=== PATIENT | male | born 2000 | race Two or more races ===

== ENCOUNTER 2022-09-07 18:11 | Emergency (ER) | payer SELFPAY ==
[~2022-09-07] VITALS: Ht 180.3 cm; Wt 63.0 kg
--- NOTE | 2022-09-07 18:21 | NUR ---
URINE COLLECTED AND SENT
--- NOTE | 2022-09-07 18:29 | NUR ---
TECH AT BEDSIDE FOR EKG
--- NOTE | 2022-09-07 18:41 | NUR ---
IV LINE ON RFA #18 INNER TUBE CUTTER
--- NOTE | 2022-09-07 18:53 | NUR ---
PT TAKEN TO RADIOLOGY FOR CT
[2022-09-07] MEDS ORDERED: IV NS 0.9% 1,000 ML BAG IV ONE (19:00)
[2022-09-07 19:12] LABS: CALCIUM, SERUM 8.4 mg/dL (8.5-10.1); CARBON DIOXIDE 25 mmol/L (21-32); CHLORIDE 103 mmol/L (98-107); CREATININE 0.9 mg/dL (0.6-1.3); GLUCOSE 110 mg/dL (74-106); SODIUM SERUM 143 mmol/L (136-145); UREA NITROGEN, BLOOD 9 mg/dL (7-18)
--- NOTE | 2022-09-07 19:55 | NUR ---
RECEIVED PATIENT IN BED. ALTERED. AAOX1. PATIENT WITHDRAWS TO PAIN. PATIENT IS ATTACHED TO MONITOR. VITALS CHECKED. HAS PERIPHEREAL LINE ON LEFT FA G18. RUNNING IS NS 1L.
[2022-09-07 20:22] LABS: BASOPHILS % (AUTO) 0.2 % (0.0-2.0); EOSINOPHILS % (AUTO) 0.2 % (0.0-6.0); HEMATOCRIT 43 % (39-51); HEMOGLOBIN 14.4 g/dL (13.5-17.5); LYMPHOCYTES # (AUTO) 1.6 K/uL (0.8-4.8); LYMPHOCYTES % (AUTO) 17.9 % (20.0-44.0); MEAN CORPUSCULAR HGB CONC 34 g/dl (31.0-36.0); MEAN CORPUSCULAR VOLUME 86 fL (80-96); MONOCYTES # (AUTO) 0.3 K/uL (0.1-1.30); MONOCYTES % (AUTO) 3.8 % (2.0-12.0); NEUTROPHILS # (AUTO) 6.9 K/uL (1.8-8.9); NEUTROPHILS % (AUTO) 77.9 % (43.0-81.0); PLATELET COUNT (AUTO) 289 K/uL (150-450); RED BLOOD CELL COUNT(AUTO) 4.95 MIL/uL (4.5-6.0); WHITE BLOOD COUNT (AUTO) 8.9 K/uL (4.3-11.0)
--- NOTE | 2022-09-07 20:50 | NUR ---
Sid short in ED - 09/07/22 at 2051 by JENNY Patient discharged to home in stable condition. Written and verbal after care instructions given. Patient verbalizes understanding of instruction.
--- NOTE | 2022-09-07 20:50 | NUR ---
Sid short in [facility] - 09/07/22 at 2121 by JENNY IV CANNULA REMOVED
[2022-09-07] MEDS ORDERED: POTASSIUM CL. PREMIX PERIPHER. 50 ML ONE ×3 (21:08→23:34)
--- NOTE | 2022-09-07 21:21 | NUR ---
KCL INFUSION STARTED. RUNNING 1ST BAG OF KCL 10meq/50ml x1 hr.
[2022-09-07] MEDS: POTASSIUM CL. PREMIX PERIPHER. 50 ML IV SCH ×3 (21:23→23:48)
--- NOTE | 2022-09-07 22:23 | NUR ---
2ND BAG OF KCL 10MEQ/50ML STARTED.
[2022-09-07 23:23] LABS: ALANINE AMINOTRANSFERASE 225 U/L (12-78); ALCOHOL, BLOOD 378 mg/dL (0-0); ALKALINE PHOSPHATASE 60 U/L (46-116); ASPARTATE AMINOTRANSFERASE 591 U/L (15-37); BILIRUBIN,DIRECT 0.1 mg/dL (0.0-0.2); BILIRUBIN,TOTAL 0.3 mg/dL (0.2-1.0); TOTAL PROTEIN, SERUM 7.1 g/dL (6.4-8.2)
[2022-09-08 01:12] LABS: THYROID STIMULATING HORMONE 0.937 uIU/mL (0.358-3.74)
[2022-09-08] MEDS ORDERED: POTASSIUM CL. PREMIX PERIPHER. 50 ML ONE (01:13)
[2022-09-08] MEDS: POTASSIUM CL. PREMIX PERIPHER. 50 ML IV SCH (01:15)
--- NOTE | 2022-09-08 05:30 | NUR ---
PATIENT IS AWAKE. IFC REMOVED.
--- NOTE | 2022-09-08 05:39 | NUR ---
PATIENT IS AWAKE, A, OX3. BREATHING EVENLY. REPORTED FEELING WELL AND WILLING TO LEAVE. DENIED SI/HI. AMBULATOR WITH STEADY GAITS. PO INTAKE TOLERATED WELL. MADE AWARE.
--- NOTE | 2022-09-08 05:50 | NUR ---
Patient discharged to home in stable condition. Written and verbal after care instructions given. Patient verbalizes understanding of instruction.
--- NOTE | 2022-09-08 05:50 | NUR ---
Patient discharged to home in stable condition. Written and verbal after care instructions given. Patient verbalizes understanding of instruction.IV removed. Catheter intact and site benign. Pressure and 4x4 applied to site. No bleeding noted.
--- NOTE | 2022-09-08 05:50 | NUR ---
IV CANNULA REMOVED.
[2022-09-08 05:51] VITALS: BP 112/75
== END 2022-09-08 05:52 | disposition home or self-care (01) ==
LOC: ER 18:22
DX: F10.129 Alcohol abuse with intoxication, unspecified (principal); Y90.8 Blood alcohol level of 240 mg/100 ml or more
CPT/HCPCS: 99285; 96360; 96361 ×3; 93005 ×2; 71045; 70450; 85025; 80048; 80076; 36415; 84443; 84484; 82962; 80320; J7030 ×2; J3480 ×4; G0480